=== PATIENT | male | born 1975 | race Caucasian/White ===

== ENCOUNTER 2022-07-30 12:51 | Outpatient (CLI) | payer MEDICAID, SELFPAY ==
--- NOTE | 2022-07-30 13:27 | MR_ITS ---
WS: [id number] MRI HEAD WITH CONTRAST TECHNIQUE: Sagittal T1, T2 axial, T2 axial FLAIR, axial susceptibility weighted imaging, axial diffus ion weighted images, and coronal T2 images were obtained. Pre and post-T1 axial and post T1 coronal i mages. ADC and FSPGR images. CLINICAL INFORMATION: HEADACHE/DIZZINESS COMPARISON: None. FINDINGS: No evidence of restricted diffusion to suggest acute ischemia. Ventricular system and basal cisterns are patent. No suspicious intracranial signal abnormalities. Normal posterior fossa. Normal vascular flow voids at the skull base. No extra axial fluid collections. No evidence of mass or mass effect. P aranasal sinuses and mastoid air cells are well aerated. Normal posterior nasopharynx and parapharyng eal fat. No hemosiderin on the susceptibility weighted images. Normal optic chiasm and pituitary infundibulum. Normal cavernous sinuses and Meckel's cave. Poor gadolinium enhancement on the post gadolinium image s. No abnormal foci of enhancement. 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 Recommend correlation with pituitary function studies. This can be followed up i n 6 months with MRI of the head without and with gadolinium enhancement pituitary protocol. MR/MR head wo/w con [id number] IMPRESSION: 1. No evidence of restricted diffusion to suggest acute ischemia. 2. No suspicious intracranial parenchymal signal abnormalities. Normal solomon-wh ite differentiation. 3. 6 x 10 mm T1 hyperintense lesion in the posterior pituitary anterior to the normal hyperintense neurohypophysis. 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 No evidence of suprasellar extension. Recommend correlation with pituitary f unction studies. This can be followed up in 6 months MRI without and with gadol inium enhancement with pituitary protocol. 4. Normal optic chiasm and pituitary infundibulum. 5. No other significant findings.
[2022-07-30] MEDS: gadobenate dimeglumine 20 mL vial IV (14:28)
== END 2022-07-30 12:52 | disposition home or self-care (01) ==
LOC: RAD 12:52
PROVIDERS: PCP Family Medicine; Visit Provider Family Medicine
DX: R59.1 Generalized enlarged lymph nodes (principal); R42 Dizziness and giddiness
CPT/HCPCS: 70553

== ENCOUNTER 2023-01-17 09:34 | Outpatient (CLI) | payer MEDICAID, SELFPAY ==
--- NOTE | 2023-01-17 09:51 | MR_ITS ---
WS: [id number] MRI HEAD WITHOUT AND WITH CONTRAST WITH ATTENTION TO THE PITUITARY TECHNIQUE: Sagittal T1, T2 axial, T2 axial FLAIR, axial susceptibility weighted imaging, axial diffus ion weighted images, and coronal T2 images were obtained. Pre and post-T1 axial and post T1 coronal i mages. ADC and FSPGR images. High-resolution imaging of the pituitary pre and post gadolinium pituita ry imaging CLINICAL INFORMATION: PITUITARY CYST COMPARISON: MRI 2021 FINDINGS: T1 hyperintense lesion in the pituitary measures 6.9 x12.8 x 4.8 mm AP by transverse by craniocaudal unchanged compared to previous. No abnormal enhancement. 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 No evidence of restricted diffusion to suggest acute ischemia. Ventricular system and basal cisterns are patent. No suspicious intracranial signal abnormalities. Normal posterior fossa. Normal vascular flow voids at the skull base. No extra axial fluid collections. No evidence of mass or mass effect. Paranasal sinuses and mastoid air cells are well aerated. Normal posterior nasopharynx and parapharyn geal fat. No hemosiderin on the susceptibility weighted images. Normal optic chiasm and pituitary inf undibulum. Normal cavernous sinuses and Meckel's cave. No abnormal foci of enhancement. 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 Recommend 12 month follow-up MRI with and without and with gadol inium enhancement.
[2023-01-17] MEDS: gadobenate dimeglumine 20 mL vial IV (11:36)
== END 2023-01-17 09:35 | disposition home or self-care (01) ==
LOC: RAD 09:40
PROVIDERS: PCP Family Medicine; Visit Provider Family Medicine
DX: E23.6 Other disorders of pituitary gland (principal)
CPT/HCPCS: 70553; A9577

== ENCOUNTER 2023-03-28 10:07 | Outpatient (CLI) | payer MEDICAID, SELFPAY ==
--- NOTE | 2023-03-28 10:16 | XR_ITS ---
WS: [id number] XR cervical spine 4-5V [id number] REASON FOR EXAM: NECK PAIN FINDINGS: Mild reversal of the normal lordosis of the cervical spine. Normal odontoid and vertebral bodies. Intervertebral disc spaces are intact and relatively well-preserved. Normal facet joints. No significant neutral listhesis. No significant vertebral body shift with flexion or extension. XR/XR cervical spine 4-5V [id number] IMPRESSION: Alteration of cervical spine curvature as above.
--- NOTE | 2023-03-28 10:16 | XR_ITS ---
WS: [id number] XR thoracic spine 3V* [id number] REASON FOR EXAM: BACK PAIN FINDINGS: Relatively normal thoracic spine curvatures AP and lateral. No vertebral body abnormality. Minimal narrowing of the intervertebral disc spaces in the mid and upper thoracic spine with minimal anterior osteophytosis. XR/XR thoracic spine 3V* [id number] IMPRESSION: Minimal change of degenerative spondylosis.
== END 2023-03-28 10:08 | disposition home or self-care (01) ==
LOC: RAD 10:10
PROVIDERS: PCP Family Medicine; Visit Provider Family Medicine
DX: M54.2 Cervicalgia (principal); M40.50 Lordosis, unspecified, site unspecified; M47.814 Spondylosis without myelopathy or radiculopathy, thoracic region
CPT/HCPCS: 72050; 72072

== ENCOUNTER 2023-06-16 18:51 | Emergency (ER) | payer MEDICAID, SELFPAY ==
[2023-06-16 18:54] VITALS: BP 118/81; PULSE 75; RESP 21; TEMP 36.9; O2SAT 96; BMI 32.5
--- NOTE | 2023-06-16 19:02 | XRR_ITS ---
PROCEDURE INFORMATION: Exam: XR Chest Exam date and time: 06/16/2023 7:30 PM Age: 48 years old Clinical indication: Other: Allergic reaction; Additional info: Allergice reaction TECHNIQUE: Imaging protocol: Radiologic exam of the chest. Views: 1 view. COMPARISON: CR XR cervical spine 4-5V [id number] 03/28/2023 10:25 AM FINDINGS: Lungs: Unremarkable. No consolidation. Pleural spaces: Unremarkable. No pleural effusion. No pneumothorax. Heart/Mediastinum: Unremarkable. No cardiomegaly. Bones/joints: Unremarkable. XR/XR chest 1V portable [id number] IMPRESSION: No acute findings.
--- NOTE | 2023-06-16 19:05 | ED_ITS ---
HPI - Allergic Reaction General: Chief complaint: Allergic Reaction Stated complaint: ANAPHALYAXIS Time Seen by Provider: 06/16/23 18:56 Source: patient and EMS Mode of arrival: EMS Limitations: no limitations History of Present Illness: HPI narrative: 48-year-old male states that he is stung by wasp twice in his arm states he started to have a sharp pain in his back felt short of breath he mistakenly got there he was lethargic he gave him epinephrine Solu-Medrol Benadryl he states he feels much improved he is awake and alert has no complaints this time no rash no difficulty breathing. Associated symptoms: Deny abdominal pain, nausea or vomiting Review of Systems Const: Reports: fatigue; Denies: fever(s), chills, body aches or change in appetite Eyes: Denies: blurry vision or eye discomfort ENMT: Denies: throat pain or dental pain Card: Denies: chest pain Resp: Denies: dyspnea GI: Denies: abdominal pain, nausea, vomiting or diarrhea Musc: Reports: back pain; Denies: neck pain Skin/Breast: Reports: rash Physical Exam Const: COMMON NORMALS: no acute distress, patient oriented x3 and healthy appearing HENMT: COMMON NORMALS: normocephalic and atraumatic HEAD & SCALP: normocephalic and atraumatic Eye: COMMON NORMALS: Equal, round and reactive pupils present and EOMs intact bilaterally PUPIL: Yes Equal, round and reactive pupils present Neck/C-Spine: COMMON NORMALS: full ROM and supple Chest: COMMONS NORMALS: normal inspection of the chest and normal palpation of entire chest wall Resp: COMMON NORMALS: normal respiratory effort, No retractions, No use of accessory muscles and clear to auscultation bilaterally AUSCULTATION: clear to auscultation bilaterally Cardio: COMMON NORMALS: regular rate, regular rhythm and No murmurs present (Cardio) RATE: regular rate RHYTHM: regular rhythm GI: COMMON NORMALS: Normal to inspection, nondistended, normoactive bowel sounds present, Soft to palpation, non-tender and no masses PALPATION: Yes Soft to palpation Extremity: COMMON NORMALS: normal to inspection and full ROM Neuro: COMMON NORMALS: patient oriented x3, moves all extremities and no focal motor deficits Psych: COMMON NORMALS: mental status grossly normal, Normal thought process present and cooperative THOUGHT PROCESS: Normal thought process present Skin: COMMON NORMALS: no rashes or lesions noted and no wounds GENERAL SKIN EXAM: no rashes or lesions noted Course Vital Signs: Vital signs: Vital Signs Temperature 98.4 F 06/16/23 18:54 Pulse Rate 80 06/16/23 19:30 Respiratory Rate 27 H 06/16/23 19:30 Blood Pressure 120/71 06/16/23 19:30 Pulse Oximetry 94 06/16/23 19:30 Oxygen Delivery Me thod Room Air 06/16/23 19:30 MDM - Allergic Reaction Medical Decision Making Patient presents here with foot contusion along with an abrasion x-ray here shows no fracture he is stable for discharge he is to follow-up his PCP and return if worsening he understands agrees to plan. Medical Records I reviewed the patient's medical records. Lab Data I reviewed the patient's lab results. 06/16/23 19:36 06/16/23 19:36 Laboratory Results WBC 12.44 10^3/uL (3.29-11.43) H 06/16/23 19:36 RBC 5.50 10^6/uL (3.85-5.65) 06/16/23 19:36 Hgb 17.10 g/dL (11.27-16.99) H 06/16/23 19:36 Hct 51.4 % (37-53) 06/16/23 19:36 MCV 93.5 fl (82-101) 06/16/23 19:36 MCH 31.1 pg (27-33) 06/16/23 19:36 MCHC 33.3 g/dL (30-55) 06/16/23 19:36 RDW 13.2 % (12.1-15.1) 06/16/23 19:36 Plt Count 280 10^3/cmm (157-399) 06/16/23 19:36 MPV 9.6 fL (7.4-10.4) 06/16/23 19:36 Neut % (Auto) 71.5 % 06/16/23 19:36 Lymph % (Auto) 21.9 % 06/16/23 19:36 [place] % (Auto) 4.8 % 06/16/23 19:36 Eos % (Auto) 1.0 % 06/16/23 19:36 Baso % (Auto) 0.2 % 06/16/23 19:36 Neut # (Auto) 8.90 10^3/uL (1.8-7.7) H 06/16/23 19:36 Lymph # (Auto) 2.7 10^3/uL (0.8-4.8) 06/16/23 19:36 [place] # (Auto) 0.6 10^3/uL (0.2-0.9) 06/16/23 19:36 Eos # (Auto) 0.1 10^3/uL (0.0-0.8) 06/16/23 19:36 Baso # (Auto) 0.0 10^3/uL (0.0-0.1) 06/16/23 19:36 Nucleated RBC % (auto) 0 % 06/16/23 19:36 Nucleated RBCs # 0.0 /100WBC 06/16/23 19:36 Sodium 140 mmol/L (136-145) 06/16/23 19:36 Potassium 4.1 mmol/L (3.5-5.1) 06/16/23 19:36 Chloride 104 mmol/L (98-107) 06/16/23 19:36 Carbon Dioxide 23 mmol/L (22-29) 06/16/23 19:36 Anion Gap 17.1 (5-19) 06/16/23 19:36 BUN 12 mg/dL (6-20) 06/16/23 19:36 Creatinine 1.0 mg/dL (0.7-1.2) 06/16/23 19:36 GFR Calculation 80.1 mL/min (90-130) L 06/16/23 19:36 Glucose 94 mg/dL (65-115) 06/16/23 19:36 Calculated Osmolality 290 mOsm/kg (285-295) 06/16/23 19:36 Calcium 8.8 mg/dL (8.5-10.5) 06/16/23 19:36 Total Bilirubin 0.6 mg/dL (0.15-1.2) 06/16/23 19:36 AST 20 U/L (0-40) 06/16/23 19:36 ALT 24 U/L (0-41) 06/16/23 19:36 Alkaline Phosphatase 71 U/L (40-130) 06/16/23 19:36 Total Protein 7.5 g/dL (6.6-8.7) 06/16/23 19:36 Albumin 4.8 g/dL (3.5-5.2) 06/16/23 19:36 Globulin 2.7 g/dL (1.3-4.6) 06/16/23 19:36 Discharge Plan Discharge Patient Disposition: Home Clinical Impression: Allergic reaction Condition: Stable Prescriptions: No Action propranolol 10 mg tablet 10 mg PO BID lisinopril 5 mg tablet 5 mg PO DAILY atorvastatin 20 mg tablet 20 mg PO DAILY omeprazole 20 mg capsule,delayed release(DR/EC) 20 mg PO DAILY levocetirizine [Xyzal] 5 mg tablet 5 mg PO DAILY fluticasone propionate [Flonase Allergy Relief] 50 mcg/actuation spray,suspension 1 spray intranasal BID PRN Rx Instructions: administer into each nostril Discharge Orders: Discharge ED (Routine); Ordered 06/16/23 Ordered By: Amadeo Collins Referrals: Sandy Rodrigues DO [Primary Care Provider] - 1-3 days Discharge Diet: Advance as tolerated Discharge Activity: Resume usual activity Patient Instructions: General Allergic Reaction (ED) Coding Level of Care Code ED Retail Product Demo Specialist for Jakub Wheatley
[2023-06-16] MEDS: sodium chloride 0.9% 1,000 ML 999 ML IV (19:11)
[2023-06-16 19:30] VITALS: BP 120/71; PULSE 80; RESP 27; O2SAT 94
[2023-06-16 19:42] LABS: Basophils % 0.2 %; Eosinophils # 0.1 10^3/uL (0.0-0.8); Hematocrit 51.4 % (37-53); Lymphocytes # 2.7 10^3/uL (0.8-4.8); Lymphocytes % 21.9 %; Mean Corpuscular HGB Conc 33.3 g/dL (30-55); Mean Corpuscular Hemoglobin 31.1 pg (27-33); Mean Corpuscular Volume 93.5 fl (82-101); Mean Platelet Volume 9.6 fL (7.4-10.4); Monocytes # 0.6 10^3/uL (0.2-0.9); Monocytes % 4.8 %; Neutrophils % 71.5 %; Nucleated Red Blood Cells % 0 %; Platelet Count 280 10^3/cmm (157-399); Red Cell Distribution Width 13.2 % (12.1-15.1); White Blood Count 12.44 10^3/uL (3.29-11.43)
[2023-06-16 20:05] LABS: Alanine Aminotransferase 24 U/L (0-41); Albumin Level 4.8 g/dL (3.5-5.2); Alkaline Phosphatase 71 U/L (40-130); Blood Urea Nitrogen 12 mg/dL (6-20); Calcium 8.8 mg/dL (8.5-10.5); Carbon Dioxide 23 mmol/L (22-29); Chloride 104 mmol/L (98-107); Globulin 2.7 g/dL (1.3-4.6); Glomerular Filtration Rate 80.1 mL/min (90-130); Glucose 94 mg/dL (65-115); Osmolality Calculated 290 mOsm/kg (285-295); Sodium 140 mmol/L (136-145); Total Bilirubin 0.6 mg/dL (0.15-1.2); Total Protein 7.5 g/dL (6.6-8.7)
[2023-06-16 20:13] LABS: Anion Gap 17.1 (5-19); Aspartate Amino Transferase 20 U/L (0-40); Potassium 4.1 mmol/L (3.5-5.1)
[2023-06-16 20:38] VITALS: BP 113/67; PULSE 86; RESP 21; O2SAT 93
== END 2023-06-16 20:45 | disposition home or self-care (01) ==
PROVIDERS: Emergency Provider Emergency Medicine; PCP Family Medicine
DX: T63.461A Toxic effect of venom of wasps, accidental (unintentional), initial encounter (principal)
CPT/HCPCS: 36415; 71045; 80053; 85025; 99284; J7030

== ENCOUNTER → 2024-01-19 16:40 | Outpatient (BNVA) | payer MEDICAID, SELFPAY | PROVIDERS: PCP Family Medicine; Visit Provider Specialist | DX: G24.3 Spasmodic torticollis (principal); E23.6 Other disorders of pituitary gland; G25.0 Essential tremor; M54.2 Cervicalgia; Z79.899 Other long term (current) drug therapy | CPT/HCPCS: 36415; 82533; 84439; 84443 ==

== ENCOUNTER 2024-02-27 09:15 | Outpatient (CLI) | payer MEDICAID, SELFPAY ==
--- NOTE | 2024-02-27 09:30 | MR_ITS ---
WS: [id number] MRI CERVICAL SPINE NONCONTRAST HISTORY: G24.3 - Spasmodic torticollis COMPARISON: Cervical spine radiographs 03/28/2023 Technique: Multiplanar, multisequence noncontrast imaging of the cervical spine. Moderate straightening of the normal cervical lordosis as seen on the prior radiograph also. Disc spa alana are mildly narrowed and desiccated. No fractures or marrow edema. Signal within the cervical cord is normal. Visualized posterior fossa is unremarkable. Craniocervical junction, C1 and C2 relationship, odontoid process and soft tissues are normal. C2-C3: Normal. C3-C4: Small central disc protrusion with mild osteophytic ridging. Mild encroachment upon the ventra l thecal sac without significant stenosis. C4-C5: Mild annular disc bulging and osteophytic ridging mild facet arthritis. Very mild encroachment upon the central canal. Mild bilateral foraminal stenosis, RIGHT greater than LEFT. C5-C6: Central disc protrusion with osteophytic ridging and annular disc bulging and facet arthritis. Small central disc protrusion encroaches but does not displace the ventral thecal sac. Very mild allison tral and foraminal stenosis. C6-C7: Annular disc bulging with osteophytic ridging. Moderate size RIGHT foraminal disc osteophyte c ausing at least moderate RIGHT foraminal stenosis and displacement of the nerve root. Very mild centr al and LEFT foraminal narrowing. Moderate facet joint arthritis. C7-T1: Osteophytic ridging without significant stenosis. Mild facet arthritis. Paraspinal soft tissue are normal. MR/MR cervical spin wo con* [id number] IMPRESSION: 1. Straightening of the normal cervical lordosis is probably due to spasm. 2. C6-7: Moderate size RIGHT foraminal disc osteophyte complex causing at leas t moderate RIGHT foraminal stenosis with encroachment and displacement of the n erve roots. Mild central and LEFT foraminal stenosis. 3. C5-6: Central disc protrusion and osteophytic ridging. Mild central and for aminal stenosis. 4. C3-4: Mild central disc protrusion without significant stenosis. 5. C4-5: Very mild central and bilateral foraminal stenosis due to disc and os teophyte disease. 6. No high-grade central stenosis.
== END 2024-02-27 09:16 | disposition home or self-care (01) ==
LOC: RAD 09:15
PROVIDERS: PCP Family Medicine; Visit Provider Specialist
DX: G24.3 Spasmodic torticollis (principal); M48.02 Spinal stenosis, cervical region; M50.21 Other cervical disc displacement, high cervical region; M50.222 Other cervical disc displacement at C5-C6 level
CPT/HCPCS: 72141

== ENCOUNTER 2024-02-28 09:17 | Outpatient (CLI) | payer MEDICAID, SELFPAY ==
--- NOTE | 2024-02-28 09:30 | MR_ITS ---
WS: [id number] MRI BRAIN WITHOUT AND WITH CONTRAST, ATTENTION DIRECTED TO THE PITUITARY GLAND HISTORY: E23.6 - Other disorders of pituitary gland, follow-up pituitary lesion. COMPARISON: 01/17/2023, 07/30/2022 TECHNIQUE: Diffusion-weighted imaging, axial T2 sequence, and postcontrast images in 3 planes are per formed. High-resolution coronal and sagittal imaging performed through the pituitary region with and without intravenous gadolinium. Only limited IV injection due to the poor IV access. Reidentified is the T1 hyperintense lesion in the pituitary gland measuring 5 x 5 x 8 mm. No increase in size since the prior study. May measure slightly smaller in size. There is no enhancement. This p robably represents a Rathke cleft cyst is stable. The image quality is not as good as the prior study due to the poor bolus contrast injection today. Diffusion imaging is normal. No restricted diffusion or ischemia. No prior infarct. Ventricles and ex tra-axial spaces are normal. Normal posterior fossa. Postcontrast images are negative for abnormal en hancement within the brain. No vascular malformations. Cerebellopontine angles are negative. Small mucous retention cyst in the LEFT maxillary sinus. No air-fluid levels. Normal mastoid air cell s. Normal calvarium. MR/MR pituitary wo/w con* [id number] IMPRESSION: 1. No interval change in the T1 hyperintense lesion in the pituitary gland. 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 Tumor is less conspicuous today due to the poor bolus injection of contrast due to difficult IV access. 2. The remaining brain is unremarkable.
[2024-02-28] MEDS: gadobenate dimeglumine 20 mL vial IV (10:47)
== END 2024-02-28 09:18 | disposition home or self-care (01) ==
PROVIDERS: PCP Family Medicine; Visit Provider Specialist
DX: E23.6 Other disorders of pituitary gland (principal)
CPT/HCPCS: 70553; A9577

== ENCOUNTER → 2024-04-26 08:40 | Outpatient (BNVA) | payer MEDICAID, SELFPAY | PROVIDERS: PCP Family Medicine; Visit Provider Orthopaedic Surgery | DX: M47.12 Other spondylosis with myelopathy, cervical region (principal) | CPT/HCPCS: 72050 ==

== ENCOUNTER 2024-07-26 06:32 | Day surgery (SDC) | payer MEDICAID, SELFPAY ==
--- NOTE | 2024-07-26 05:45 | W.PM.OPSFHP ---
Same Day Surgery H&P Indication for Procedure/HPI DATE OF PROCEDURE: July 26, 2024 CHIEF COMPLAINT/INDICATIONFOR SURGICAL PROCEDURE: need for screening colonoscopy PREOP DIAGNOSIS: need for screening colonoscopy PLANNED PROCEDURE: Operation Date: 07/26/24 07:40 Proposed Procedures p Colonoscopy - 54499, G0105, Z12.11(Not Applicable) - Papi Johnson MD Medications/Allergies* Home Medications Medication Instructions Recorded Confirmed Type atorvastatin 20 mg tablet 20 mg PO DAILY 06/15/23 07/24/24 History fluticasone propionate 50 1 spray intranasal BID PRN Allergy 06/15/23 07/24/24 History mcg/actuation nasal Symptoms spray,suspension (Flonase Allergy Relief) levocetirizine 5 mg tablet (Xyzal) 5 mg PO DAILY 06/15/23 07/24/24 History omeprazole 20 mg capsule,delayed 20 mg PO DAILY 06/15/23 07/24/24 History release propranolol 10 mg tablet 10 mg PO BID 06/15/23 07/24/24 History amlodipine 5 mg tablet 5 mg PO DAILY 10/20/23 07/24/24 History Allergies/Adverse Reactions Allergy/AdvReac Type Severity Reaction Status Date / Time No Known Allergies Allergy Unverified 07/24/24 15:09 Pertinent History/Comorbid Conditions* Family History (Updated 02/15/24 @ 09:12 by Angi Brandt MA) Diabetes Father Social History Smoking and tobacco/nicotine status: never used tobacco/nicotine Second hand smoke exposure: No Alcohol intake: never Substance/Drug Use: current Substance/Drug use frequency: daily Pertinent Exam Findings alert, oriented x 3, clear to auscultation bilaterally and regular rate & rhythm Recommendations Surgery/Procedure today Coding Level of Care Code Acute Code for Chg Fwd
[2024-07-26 06:49] VITALS: BP 145/84; PULSE 72; RESP 18; TEMP 36.6; O2SAT 95; BMI 32.5
[2024-07-26] MEDS: sodium chloride 0.9% 1,000 ML 30 ML IV (06:59)
--- NOTE | 2024-07-26 07:01 | ANES.PREANE2 ---
Pre-Anesthetic Assessment Height/Weight: Height 1.75 m Weight 99.79 kg Temp Pulse Resp BP Pulse Ox O2 Del Method 97.8 F 72 18 145/84 95 Room Air 07/26/24 06:49 07/26/24 06:49 07/26/24 06:49 07/26/24 06:49 07/26/24 06:49 07/26/24 06:49 Preop Diagnosis: need for screening colonoscopy Operation Date: 07/26/24 07:40 Proposed Procedures p Colonoscopy - 20758, G0105, Z12.11(Not Applicable) - Papi Johnson MD Familial anesthetic complications: NOne Was Beta Ion taken within 24 hours: Yes Was Clonidine taken within 24 hours: N/A Last intake: Intake Last Liquid Date 07/25/24 Last Liquid Time 23:00 Last Solid Date 07/24/24 Last Solid Time 19:00 Social Tobacco and No alcohol Exam alert, oriented x 3, clear to auscultation bilaterally and regular rate & rhythm Airway Mallampati: Class II Dentition: chipped and other (rotten lower teeth, in poor shape per patient) Comments: Comments: cervical dystonia, 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 CV/HEM Hypertension GI Gastroesophageal Reflux Disease Metabolic Hyperlipidemia Neuropsych tremor Anesthetic Plan ASA status: 3 Anesthesia: MAC Risk of > 500 ml blood loss (7ml/kg in children): No Medications/Allergies Home Medications Medication Instructions Recorded Confirmed Last Taken Type atorvastatin 20 mg tablet 20 mg PO DAILY 06/15/23 07/24/24 07/26/24 History fluticasone propionate 50 1 spray intranasal BID PRN Allergy 06/15/23 07/24/24 07/26/24 History mcg/actuation nasal Symptoms spray,suspension (Flonase Allergy Relief) levocetirizine 5 mg tablet (Xyzal) 5 mg PO DAILY 06/15/23 07/24/24 07/24/24 History omeprazole 20 mg capsule,delayed 20 mg PO DAILY 06/15/23 07/24/24 07/26/24 History release propranolol 10 mg tablet 10 mg PO BID 06/15/23 07/24/24 07/26/24 History amlodipine 5 mg tablet 5 mg PO DAILY 10/20/23 07/24/24 07/26/24 History Allergies Allergy/AdvReac Type Severity Reaction Status Date / Time No Known Allergies Allergy Unverified 07/24/24 15:09 Current Medications Generic Name Dose Route Start Last Admin Trade Name Madeleine PRN Reason Stop Dose Admin Sodium Chloride 1,000 mls @ 30 mls/hr 07/26/24 06:45 07/26/24 06:59 Sodium Chloride 0.9% IV 07/27/24 06:44 30 mls/hr .Q24H DEJA Administration PFSH Anesthesia Family History Father Diabetes Social History Smoking and tobacco/nicotine status: never used tobacco/nicotine Second hand smoke exposure: No Alcohol intake: never Substance/Drug Use: current Substance/Drug use frequency: daily Data Anesthesia Cardiac Studies: No Data to Display
[2024-07-26 07:48] VITALS: BP 99/64; PULSE 67; RESP 12; TEMP 36.1; O2SAT 92
[2024-07-26 08:00] VITALS: BP 123/69; PULSE 71; RESP 16; O2SAT 95
[2024-07-26 08:10] VITALS: BP 115/69; PULSE 68; RESP 18; O2SAT 94
--- NOTE | 2024-07-26 08:25 | ANE.PACU2 ---
Inpatient post-anesthesia follow up: Airway intact: Yes Vital signs: Temperature 97 F Pulse Rate 68 Respiratory Rate 18 Blood Pressure 115/69 Pulse Oximetry 94 Oxygen Delivery Me thod Room Air Oxygen Flow Rate Fraction of Inspir ed Oxygen Hydration adequate: Yes Nausea and vomiting: No Pain level: 1 Mental status: Baseline
== END 2024-07-26 08:25 | disposition home or self-care (01) ==
PROVIDERS: PCP Family Medicine; Visit Provider Surgery
PROC: 0DJD8ZZ Inspection of Lower Intestinal Tract, Via Natural or Artificial Opening Endoscopic (ICD-10-PCS; CPT 45378; principal; 2024-07-26 07:40)
DX: Z12.11 Encounter for screening for malignant neoplasm of colon (principal); K63.5 Polyp of colon; K64.8 Other hemorrhoids; I10 Essential (primary) hypertension; K21.9 Gastro-esophageal reflux disease without esophagitis
CPT/HCPCS: 45380; 88305; J2704; J7030